=== PATIENT | female | born 1990 | race Caucasian/White ===

== ENCOUNTER 2019-10-21 17:18 | Inpatient (IN) | payer BC ==
[~2019-10-21] VITALS: Ht 170.2 cm; Wt 84.0 kg
[2019-10-21] MEDS ORDERED: D5%-LACTATED RINGERS 1,000 ML IV SCH (18:28)
[2019-10-21] MEDS ORDERED: LACTATED RINGERS 1,000 ML IV SCH (18:28)
[2019-10-21] MEDS ORDERED: OXYTOCIN 30U/ 0.9% NaCL 500ML 500 ML IV ONE (18:28)
[2019-10-21] MEDS ORDERED: OXYTOCIN 30U/ 0.9% NaCL 500ML 500 ML IV PRN (18:28)
[2019-10-21] MEDS ORDERED: TERBUTALINE 1 MG/ML, 1ML IVPush PRN (18:30)
[2019-10-21] MEDS ORDERED: ONDANSETRON 2MG/ML, 2ML IVPush PRN (18:30)
[2019-10-21] MEDS ORDERED: TERBUTALINE 1 MG/ML, 1ML SQ PRN (18:30)
[2019-10-21] MEDS ORDERED: SODIUM CITRATE/CITRIC ACID 30 ML UDC PO PRN (18:30)
[2019-10-21] MEDS ORDERED: FENTANYL PF 100 MCG/2ML IVPush PRN (18:30)
[2019-10-21] MEDS ORDERED: ALUMINUM/MAG/SIMETHICONE 30 ML UDC PO PRN (18:30)
[2019-10-21] MEDS ORDERED: CALCIUM CARBONATE 500 MG TAB.CHEW PO PRN ×2 (18:30→22:00)
[2019-10-21] MEDS ORDERED: SODIUM CHLORIDE FLUSH 10ML SYR IVF PRN (18:30)
[2019-10-21] MEDS ORDERED: METOCLOPRAMIDE 5 MG/ML, 2ML IVPush PRN (18:30)
[2019-10-21 18:57] LABS: BASOPHILS # (AUTO) 0.03 x10^3/uL (0-0.1); BASOPHILS % (AUTO) 0 % (0-1); EOSINOPHILS # (AUTO) 0.02 x10^3/uL (0-0.4); EOSINOPHILS % (AUTO) 0 % (1-7); LYMPHOCYTES # (AUTO) 2.84 x10^3/uL (1-3.4); LYMPHOCYTES % (AUTO) 26 % (22-44); MD NO; MEAN CORPUSCULAR HGB CONC 33.5 g/dL (32.4-35.8); MEAN CORPUSCULAR VOLUME 89.5 fL (80-100); MEAN PLATELET VOLUME 9.2 fL (7.4-10.4); MONOCYTES # (AUTO) 0.95 x10^3/uL (0.2-0.8); MONOCYTES % (AUTO) 9 % (2-9); NEUTROPHILS # (AUTO) 7.09 x10^3/uL (1.8-6.8); NEUTROPHILS % (AUTO) 65 % (42-75); PLATELET COUNT 246 x10^3/uL (130-400); RED BLOOD COUNT 3.97 x10^6/uL (3.82-5.3); RED CELL DISTRIBUTION WIDTH 13.5 % (9.6-15.2)
[2019-10-21] MEDS ORDERED: OXYTOCIN 10 UNITS/ML, 1ML ONE ×2 (21:18→22:19)
[2019-10-21] MEDS ORDERED: NEWBORN KIT ONE (21:39)
[2019-10-21] MEDS: OXYTOCIN 30U/ 0.9% NaCL 500ML 500 ML IV SCH (21:41)
[2019-10-21] MEDS ORDERED: MISOPROSTOL 200 MCG TABLET PR PRN (22:00)
[2019-10-21] MEDS ORDERED: RHOGAM FROM BLOOD BANK 1 NOTE EA IM/IV ONE (22:00)
[2019-10-21] MEDS ORDERED: ACETAMINOPHEN 325 MG TABLET PO PRN ×2 (22:00)
[2019-10-21] MEDS ORDERED: MAGNESIUM HYDROXIDE 8%, 30ML UDC PO PRN (22:00)
[2019-10-21] MEDS ORDERED: ONDANSETRON 2MG/ML, 2ML IV PRN (22:00)
[2019-10-21] MEDS ORDERED: SIMETHICONE 80 MG CHEW TAB PO PRN (22:00)
[2019-10-21] MEDS ORDERED: OXYcodone/APAP 5/325MG TABLET PO PRN ×2 (22:00)
[2019-10-21] MEDS ORDERED: METOCLOPRAMIDE 5 MG/ML, 2ML IV PRN (22:00)
[2019-10-21] MEDS ORDERED: PLEASE ENTER ALLERGIES MC SCH (22:00)
[2019-10-21] MEDS ORDERED: DIPH,PERTUSS(ACELL),TET VAC/PF NC IM-VACC PRN (22:00)
[2019-10-21] MEDS ORDERED: OXYTOCIN 10 UNITS/ML, 1ML IM PRN (22:00)
[2019-10-21 23:29] VITALS: BP 124/73
[2019-10-21] MEDS: IBUPROFEN 600 MG TABLET PO PRN (23:52)
[2019-10-22 04:00] VITALS: BP 114/68
[2019-10-22 05:59] LABS: BASOPHILS # (AUTO) 0.05 x10^3/uL (0-0.1); BASOPHILS % (AUTO) 0 % (0-1); EOSINOPHILS # (AUTO) 0.01 x10^3/uL (0-0.4); EOSINOPHILS % (AUTO) 0 % (1-7); LYMPHOCYTES # (AUTO) 3.12 x10^3/uL (1-3.4); LYMPHOCYTES % (AUTO) 18 % (22-44); MD NO; MEAN CORPUSCULAR HEMOGLOBIN 30.7 pg (27.0-34.8); MEAN CORPUSCULAR HGB CONC 34.2 g/dL (32.4-35.8); MEAN CORPUSCULAR VOLUME 89.6 fL (80-100); MEAN PLATELET VOLUME 9.2 fL (7.4-10.4); MONOCYTES # (AUTO) 1.39 x10^3/uL (0.2-0.8); MONOCYTES % (AUTO) 8 % (2-9); NEUTROPHILS # (AUTO) 12.35 x10^3/uL (1.8-6.8); NEUTROPHILS % (AUTO) 73 % (42-75); PLATELET COUNT 263 x10^3/uL (130-400); RED BLOOD COUNT 4.06 x10^6/uL (3.82-5.3); RED CELL DISTRIBUTION WIDTH 13.8 % (9.6-15.2)
[2019-10-22] MEDS: IBUPROFEN 600 MG TABLET PO PRN ×2 (06:22→18:10)
[2019-10-22] MEDS: OXYTOCIN 30U/ 0.9% NaCL 500ML 500 ML IV SCH ×2 (07:41→17:41)
[2019-10-22] MEDS: DOCUSATE 100 MG CAPSULE PO PRN ×2 (07:56→19:40)
[2019-10-22] MEDS: PRENATAL VIT/IRON/FA 1 EACH TABLET PO SCH (07:56)
[2019-10-22 08:05] VITALS: BP 99/64
[2019-10-22 13:55] VITALS: BP 117/78
[2019-10-22] MEDS ORDERED: IBUP-1222 PO (15:11)
[2019-10-22 19:30] VITALS: BP 101/69
[2019-10-23] MEDS: OXYTOCIN 30U/ 0.9% NaCL 500ML 500 ML IV SCH (03:41)
[2019-10-23 07:41] VITALS: BP 107/69
[2019-10-23] MEDS: IBUPROFEN 600 MG TABLET PO PRN (07:59)
[2019-10-23] MEDS: PRENATAL VIT/IRON/FA 1 EACH TABLET PO SCH (07:59)
== END 2019-10-23 12:35 | disposition home or self-care (01) | DRG 807 ==
LOC: LDOP 17:18 → LDIP 21:40 → 2NW 23:22
PROVIDERS: ADMIT Obstetrics & Gynecology; ATTEND Obstetrics & Gynecology
PROC: 10E0XZZ Delivery of Products of Conception, External Approach (ICD-10-PCS; principal; 2019-10-21)
PROC: 0KQM0ZZ Repair Perineum Muscle, Open Approach (ICD-10-PCS; 2019-10-21)
DX: O77.0 Labor and delivery complicated by meconium in amniotic fluid (principal); Z37.0 Single live birth; O76 Abnormality in fetal heart rate and rhythm complicating labor and delivery; O69.1XX0 Labor and delivery complicated by cord around neck, with compression, not applicable or unspecified; O70.1 Second degree perineal laceration during delivery; Z3A.40 40 weeks gestation of pregnancy
CPT/HCPCS: 36415; 82803; 85025; 85461; 86592; 86850; 86900; 89060; G0378; J2790; J2590; Q0114